=== PATIENT | female | born 1985 | race Caucasian/White ===

== ENCOUNTER 2016-08-16 08:12 | Emergency (ER) | payer OTHER ==
[~2016-08-16] VITALS: Ht 154.9 cm; Wt 71.3 kg
[~2016-08-16 08:12] MED LIST: HYDR-1530 PO; ONDA4TAB7 OR; Z.0.NO CURRENT MEDS
[2016-08-16 08:15] VITALS: BP 113/76; PULSE 65; RESP 16; TEMP 96.7; O2SAT 100
[2016-08-16] MEDS ORDERED: SODIUM CHLOR 0.9% 1000 ML INJ 1,000 ML IV SCH (08:29)
[2016-08-16] MEDS ORDERED: ONDANSETRON HCL 4 MG/2 ML VIAL IVP ONE (08:30)
[2016-08-16] MEDS ORDERED: KETOROLAC TROMETHAMINE 30 MG/ML (IVP) VIAL IVP ONE (08:30)
--- NOTE | 2016-08-16 08:38 | PD ---
HPI Chief Complaint: Flank/Kidney Pain Time Seen by Provider: 08:24 Travel History International Travel<30 days: No Contact w/Intl Traveler<30days: No Traveled to known affect area: No History of Present Illness HPI Is a 31-year-old woman who presents to the emergency department complaining of left flank pain. Symptoms started abruptly this morning. Started with pain in the left back, left flank. It feels like when she had a kidney stone once before. She states last time the pain was so severe she came in immediately. No nausea or vomiting. No fevers or chills. No change in her urine. Menstrual cycle has been normal. No vaginal bleeding or vaginal discharge. No other complaints. History Past Medical History Medical History: Denies Significant Hx Tetanus Vaccination: Unknown LMP: 07/26/16 Menopausal: No : 0 Social History Alcohol Use: Yes (OCCASIONAL) Tobacco Use: No Allergies-Medications (Allergen,Severity, Reaction): Coded Allergies: No Known Allergies (Verified , 08/16/16) Reported Meds & Prescriptions Reported Meds & Active Scripts Active Zofran Odt (Ondansetron Odt) 4 Mg Tab 4 Mg SL Q8HR PRN May substitute non-ODT form. Lortab (Hydrocodone-Acetaminophen) 5-325 Mg Tab 1-2 Tab PO Q6H PRN Naprosyn (Naproxen) 500 Mg Tab 500 Mg PO BID PRN Ondansetron Odt (Ondansetron HCl) 4 Mg Tab 4 Mg OR Q6HPRN Acetaminophen/Hydrocodone (Acetaminophen/Hydrocodone Bitart) 325 Mg/10 Mg Tab 325 Mg PO Q6HPRN Reported No Current Meds (Miscellaneous Medication) [facility] [place] Review of Systems Except as stated in HPI: all other systems reviewed are Neg Physical Exam Narrative GENERAL: Well-appearing 31-year-old woman, no acute distress. SKIN: Focused skin assessment warm/dry. NECK: Trachea midline. No JVD. CARDIOVASCULAR: Regular rate and rhythm. No murmur appreciated. RESPIRATORY: No accessory muscle use. Clear to auscultation. Breath sounds equal bilaterally. GASTROINTESTINAL: Abdomen soft, non-tender, nondistended. Hepatic and splenic margins not palpable. No CVA tenderness percussion. MUSCULOSKELETAL: No obvious deformities. No clubbing. No cyanosis. No edema. NEUROLOGICAL: Awake and alert. No obvious cranial nerve deficits. Motor grossly within normal limits. Normal speech. PSYCHIATRIC: Appropriate mood and affect; insight and judgment normal. Data Data Last Documented VS Vital Signs Date Time Temp Pulse Resp B/P Pulse Ox O2 Delivery O2 Flow Rate FiO2 08/16/16 08:33 16 08/16/16 08:15 96.7 65 113/76 100 Orders Complete Blood Count With Diff (08/16/16 08:29) Comprehensive Metabolic Panel (08/16/16 08:29) Lipase (08/16/16 08:29) Urinalysis - C+S If Indicated (08/16/16 08:29) Iv Access Insert/Monitor (08/16/16 08:29) Ondansetron Inj (Zofran Inj) (08/16/16 08:30) Sodium Chlor 0.9% 1000 Ml Inj (Ns 1000 M (08/16/16 08:29) Sodium Chloride 0.9% Flush (Ns Flush) (08/16/16 08:30) Ketorolac Inj (Toradol Inj) (08/16/16 08:30) Ed Urine Pregnancytest Poc (08/16/16 08:29) Ed Poc Ultrasound (08/16/16 ) Morphine Inj (Morphine Inj) (08/16/16 09:30) Labs Laboratory Tests Test 08/16/16 08/16/16 08:35 08:50 Urine Color LIGHT-RED Urine Turbidity CLOUDY Urine pH 6.0 Urine Specific [place] 1.022 Urine Protein 30 mg/dL Urine Glucose (UA) NEG mg/dL Urine Ketones NEG mg/dL Urine Occult Blood LARGE Urine Nitrite NEG Urine Bilirubin NEG Urine Leukocyte Esterase TRACE Urine RBC INNUM /hpf Urine WBC 3-5 /hpf Urine Squamous Epithelial 0-5 /hpf Cells Urine Bacteria OCC /hpf Urine Mucus MANY /lpf Microscopic Urinalysis Comment CULT NOT INDICATED White Blood Count 6.5 TH/MM3 Red Blood Count 4.63 MIL/MM3 Hemoglobin 14.2 GM/DL Hematocrit 42.2 % Mean Corpuscular Volume 91.3 FL Mean Corpuscular Hemoglobin 30.8 PG Mean Corpuscular Hemoglobin 33.7 % Concent Red Cell Distribution Width 11.9 % Platelet Count 275 TH/MM3 Mean Platelet Volume 7.0 FL Neutrophils (%) (Auto) 66.9 % Lymphocytes (%) (Auto) 23.2 % Monocytes (%) (Auto) 7.7 % Eosinophils (%) (Auto) 1.5 % Basophils (%) (Auto) 0.7 % Neutrophils # (Auto) 4.4 TH/MM3 Lymphocytes # (Auto) 1.5 TH/MM3 Monocytes # (Auto) 0.5 TH/MM3 Eosinophils # (Auto) 0.1 TH/MM3 Basophils # (Auto) 0.0 TH/MM3 CBC Comment DIFF FINAL Differential Comment Sodium Level 140 MEQ/L Potassium Level 3.6 MEQ/L Chloride Level 105 MEQ/L Carbon Dioxide Level 28.5 MEQ/L Anion Gap 7 MEQ/L Blood Urea Nitrogen 13 MG/DL Creatinine 0.94 MG/DL Estimat Glomerular Filtration 70 ML/MIN Rate Random Glucose 91 MG/DL Calcium Level 8.7 MG/DL Total Bilirubin 0.3 MG/DL Aspartate Amino Transf 11 U/L (AST/SGOT) Alanine Aminotransferase 22 U/L (ALT/SGPT) Alkaline Phosphatase 55 U/L Total Protein 6.9 GM/DL Albumin 3.7 GM/DL Lipase 117 U/L MDM Medical Decision Making Medical Screen Exam Complete: Yes Emergency Medical Condition: Yes Interpretation(s) LABS: CBC unremarkable. CMP unremarkable. Lipase normal UA with large blood and minimal red blood cells Differential Diagnosis Flank pain, renal lithiasis, UTI, other Narrative Course Medical decision making INITIAL: This a 31-year-old woman presents to the emergency department of left back and flank pain, abrupt in onset, similar to previous kidney stone. She had a CAT scan with her previous kidney stone and showed a punctate calculus at the UVJ. She looks well now. She came in immediately because the pain was so severe previously. We'll check urine, point of care ultrasound, blood work, avoid CT if able. Procedures Procedure Narrative Point of care ultrasound: Focus transabdominal ultrasounds perform a me at the bedside to evaluate for the presence or absence of hydronephrosis. Mild hydronephrosis was seen on the left. Diagnosis Primary Impression: Renal lithiasis Patient Instructions: General Instructions Additional Instructions: Take Naprosyn as needed for [id number] pain. Take Lortab as needed for severe pain. Use caution as this can cause drowsiness. Do not take while driving. Use Zofran as a for nausea and vomiting. Drink plenty of fluids. Follow-up with your primary doctor in the next 2-4 days. Return to the emergency department for any worsening pain, intractable vomiting , fevers or chills, or any other new or worsening symptoms. Med/Other Pt SpecificInfo: Prescription(s) given Scripts Ondansetron Odt (Zofran Odt)4 Mg Tab4 Mg SL Q8HR PRN (Nausea/Vomiting) #15 TAB May substitute non-ODT form. Prov:Jean Lozano MD 08/16/16 Hydrocodone-Acetaminophen (Lortab)5-325 Mg Tab1-2 Tab PO Q6H PRN (PAIN) #12 TAB Prov:Jean Lozano MD 08/16/16 Naproxen (Naprosyn)500 Mg [id number] Mg PO BID PRN (PAIN SCALE 1 TO 10) #20 TAB Prov:Jean Lozano MD 08/16/16 Disposition: 01 DISCHARGE HOME Condition: Stable Jean Lozano MD Aug 16, 2016 08:38
[2016-08-16] MEDS ORDERED: ZOFR4TAB3 SL (08:40)
[2016-08-16] MEDS ORDERED: NAPR500 PO (08:40)
[2016-08-16] MEDS ORDERED: HYDR-3533 PO (08:40)
[2016-08-16] MEDS: SODIUM CHLORIDE 0.9% FLUSH 10 ML FLUSH IV FLUSH PRN ×2 (08:55→09:28)
[2016-08-16 08:58] LABS: BLOOD, URINE LARGE (NEG); GLUCOSE,URINE NEG (NEG); KETONE, URINE NEG (NEG); NITRITE,URINE NEG (NEG)
[2016-08-16 09:04] LABS: AUTOMATED NEUTROPHIL # 4.4 TH/MM3 (1.8-7.7); BASOPHIL % 0.7 % (0.0-2.0); EOSINOPHIL # 0.1 TH/MM3 (0-0.4); EOSINOPHIL % 1.5 % (0.0-4.0); HEMATOCRIT 42.2 % (35.0-46.0); HEMO FLAGS DIFF FINAL; LYMPH % 23.2 % (9.0-44.0); LYMPHOCYTE # 1.5 TH/MM3 (1.0-4.8); MEAN CELL VOLUME 91.3 FL (80.0-100.0); MEAN CORPUSCULAR HEMOGLOBIN 30.8 PG (27.0-34.0); MEAN CORPUSCULAR HGB CONC 33.7 % (32.0-36.0); MONO % 7.7 % (0.0-8.0); NEUT % 66.9 % (16.0-70.0); PLATELET COUNT 275 TH/MM3 (150-450); RED BLOOD COUNT 4.63 MIL/MM3 (4.00-5.30); RED CELL DISTRIBUTION WIDTH 11.9 % (11.6-17.2); WHITE BLOOD COUNT 6.5 TH/MM3 (4.0-11.0)
[2016-08-16 09:09] LABS: URINE COLOR LIGHT-RED (YELLW/STRAW)
[2016-08-16 09:10] LABS: CHLORIDE 105 MEQ/L (98-107); POTASSIUM 3.6 MEQ/L (3.5-5.1); SODIUM (NA) 140 MEQ/L (136-145)
[2016-08-16 09:10] LABS: BACTERIA, URINE OCC /hpf; COMMENT (UR) CULT NOT INDICATED; CULTURE IF INDICATED CULT NOT INDICATED; MUCUS URINE MANY /lpf (OCC); RBC, URINE INNUM /hpf (0-3); SQUAMOUS EPITHELIAL CELL URINE 0-5 /hpf (0-5)
[2016-08-16 09:14] LABS: ANION GAP 7 MEQ/L (5-15); BICARBONATE 28.5 MEQ/L (21.0-32.0); BLOOD UREA NITROGEN 13 MG/DL (7-18)
[2016-08-16 09:17] LABS: ALT (GPT) 22 U/L (10-53); AST (GOT) 11 U/L (15-37); GLOMERULAR FILTRATION RATE 70 ML/MIN (>89)
[2016-08-16 09:18] LABS: TOTAL BILIRUBIN ADULT 0.3 MG/DL (0.2-1.0)
[2016-08-16 09:20] LABS: ALKALINE PHOSPHATASE 55 U/L (45-117)
[2016-08-16] MEDS ORDERED: MORPHINE SULFATE 4 MG/ML INJ IV PUSH ONE (09:30)
[2016-08-16 10:07] VITALS: BP 112/67
== END 2016-08-16 10:09 | disposition home or self-care (01) ==
LOC: PHED 08:12
DX: N20.0 Calculus of kidney (principal)
CPT/HCPCS: 80053; 81001; 83690; 84703; 85025; 96361; 96374; 96375; 99284; J1885; J2270; J2405; J7030